=== PATIENT | male | born 1955 | race Caucasian/White ===

== ENCOUNTER 2024-03-01 14:58 | Inpatient (IN) | payer MEDICARE, OTHER ==
[~2024-03-01] VITALS: Ht 172.7 cm; Wt 93.9 kg
[2024-03-01] VITALS (11 sets, daily range): BP systolic 172–205; BP diastolic 79–100; O2SAT 94–100
[2024-03-01 16:31] LABS: BASOPHILS % (AUTO) 0.9 % (0.0-2.0); EOSINOPHILS # (AUTO) 0.4 K/uL (0.0-0.7); EOSINOPHILS % (AUTO) 7.2 % (0.0-6.0); HEMATOCRIT 24 % (39-51); LYMPHOCYTES % (AUTO) 19.5 % (20.0-44.0); MEAN CORPUSCULAR HEMOGLOBIN 32 PG (26.0-33.0); MEAN CORPUSCULAR HGB CONC 34 g/dl (31.0-36.0); MEAN CORPUSCULAR VOLUME 94 fL (80-96); MONOCYTES # (AUTO) 0.4 K/uL (0.1-1.30); MONOCYTES % (AUTO) 7.2 % (2.0-12.0); NEUTROPHILS # (AUTO) 3.4 K/uL (1.8-8.9); NEUTROPHILS % (AUTO) 65.2 % (43.0-81.0); PLATELET COUNT (AUTO) 186 K/uL (150-450); RED BLOOD CELL COUNT(AUTO) 2.54 MIL/uL (4.5-6.0); RED CELL DISTRIBUTION WIDTH 14.9 % (11.5-15.0); WHITE BLOOD COUNT (AUTO) 5.2 K/uL (4.3-11.0)
[2024-03-01 17:03] LABS: CALCIUM, SERUM 8.1 mg/dL (8.5-10.1); CARBON DIOXIDE 19 mmol/L (21-32); CHLORIDE 107 mmol/L (98-107); GLUCOSE 114 mg/dL (74-106); POTASSIUM 6.1 mmol/L (3.5-5.1); SODIUM SERUM 143 mmol/L (136-145); TOTAL PROTEIN, SERUM 7.3 g/dL (6.4-8.2)
[2024-03-01 17:04] LABS: ALANINE AMINOTRANSFERASE 7 U/L (12-78); ALKALINE PHOSPHATASE 107 U/L (46-116); ASPARTATE AMINOTRANSFERASE 5 U/L (15-37); BILIRUBIN,DIRECT 0.1 mg/dL (0.0-0.2); BILIRUBIN,TOTAL 0.4 mg/dL (0.2-1.0); CREATININE 13.4 mg/dL (0.6-1.3); UREA NITROGEN, BLOOD 122 mg/dL (7-18)
[2024-03-01 17:05] LABS: ALBUMIN 3.2 g/dL (3.4-5.0); NT-PRO BNP 7138 pg/mL (0-125)
[2024-03-01] MEDS ORDERED: AMLO5TAB4 PO (17:06)
[2024-03-01] MEDS ORDERED: IRBE300T19 PO (17:06)
[2024-03-01] MEDS ORDERED: FURO-144 PO (17:06)
[2024-03-01] MEDS ORDERED: SITA50TA PO (17:06)
[2024-03-01] MEDS ORDERED: TERA5CAP4 PO (17:06)
[2024-03-01 18:06] LABS: MAGNESIUM 3.2 mg/dL (1.8-2.4)
[2024-03-01] MEDS ORDERED: DEXTROSE 50%-WATER 50 ML DISP.SYRIN ONE (18:07)
[2024-03-01] MEDS ORDERED: INSULIN REGULAR, HUMAN 100 UNIT/ML 10 ML VIAL ONE (18:07)
[2024-03-01] MEDS ORDERED: FUROSEMIDE 20 MG/2 ML VIAL ONE (18:07)
[2024-03-01 18:08] LABS: PHOSPHORUS 9.3 mg/dL (2.5-4.9)
[2024-03-01] MEDS: FUROSEMIDE 40 MG/4 ML VIAL IV ONE (18:15)
[2024-03-01] MEDS: ALBUTEROL FS 2.5 MG/3 ML VIAL.NEB NEB ONE (18:22)
[2024-03-01] MEDS: CALCIUM CHLORIDE 1,000 MG/10 ML DISP.SYRIN IV ONE (18:22)
[2024-03-01] MEDS: INSULIN REGULAR, HUMAN 100 UNIT/ML 10 ML VIAL IV ONE (18:30)
[2024-03-01] MEDS: DEXTROSE 50%-WATER 50 ML DISP.SYRIN IV ONE (18:36)
[2024-03-01] MEDS: hydrALAZINE HCL IV 20 MG VIAL IV ONE (18:43)
[2024-03-01] MEDS ORDERED: ONDANSETRON HCL/PF 4 MG/2 ML VIAL IVP PRN (20:00)
[2024-03-01] MEDS ORDERED: Z GUARD REMEDY 4 OZ OINT TP PRN (20:00)
[2024-03-01] MEDS ORDERED: ACETAMINOPHEN 325 MG TABLET PO PRN (20:00)
[2024-03-01] MEDS ORDERED: DEXTROSE 50%-WATER 50 ML DISP.SYRIN IV PRN (20:00)
[2024-03-01] MEDS: AMLODIPINE BESYLATE 5 MG TABLET PO SCH (20:13)
[2024-03-01] MEDS: NITROGLYCERIN PACKET 1 GM PACKET TOP ONE (21:56)
[2024-03-01] MEDS: BLOOD SUGAR DIAGNOSTIC 1 EACH STRIP IN SCH (22:11)
[2024-03-01] MEDS: INSULIN REGULAR, HUMAN 100 UNIT/ML 3 ML VIAL SQ PRN (22:12)
[2024-03-01] MEDS ORDERED: INSULIN REGULAR, HUMAN 100 UNIT/ML 3 ML VIAL ONE (22:55)
[2024-03-02] VITALS (22 sets, daily range): BP systolic 105–184; BP diastolic 54–95; TEMP 97.6–97.8; O2SAT 94–99
[2024-03-02] MEDS: NITROGLYCERIN PACKET 1 GM PACKET TOP SCH (01:00)
[2024-03-02] MEDS: hydrALAZINE HCL IV 20 MG VIAL IV PRN (03:35)
[2024-03-02 04:11] LABS: BASOPHILS % (AUTO) 0.8 % (0.0-2.0); EOSINOPHILS # (AUTO) 0.2 K/uL (0.0-0.7); EOSINOPHILS % (AUTO) 4.9 % (0.0-6.0); HEMATOCRIT 22 % (39-51); HEMOGLOBIN 7.8 g/dL (13.5-17.5); LYMPHOCYTES # (AUTO) 0.7 K/uL (0.8-4.8); LYMPHOCYTES % (AUTO) 15.6 % (20.0-44.0); MEAN CORPUSCULAR HEMOGLOBIN 34 PG (26.0-33.0); MEAN CORPUSCULAR HGB CONC 36 g/dl (31.0-36.0); MEAN CORPUSCULAR VOLUME 94 fL (80-96); MONOCYTES # (AUTO) 0.3 K/uL (0.1-1.30); MONOCYTES % (AUTO) 6.1 % (2.0-12.0); NEUTROPHILS # (AUTO) 3.3 K/uL (1.8-8.9); NEUTROPHILS % (AUTO) 72.6 % (43.0-81.0); PLATELET COUNT (AUTO) 186 K/uL (150-450); RED BLOOD CELL COUNT(AUTO) 2.32 MIL/uL (4.5-6.0); RED CELL DISTRIBUTION WIDTH 14.8 % (11.5-15.0); WHITE BLOOD COUNT (AUTO) 4.6 K/uL (4.3-11.0)
[2024-03-02 04:46] LABS: THYROID STIMULATING HORMONE 1.24 uIU/mL (0.358-3.74)
[2024-03-02 04:53] LABS: CALCIUM, SERUM 8.6 mg/dL (8.5-10.1); CREATININE 7.2 mg/dL (0.6-1.3); MAGNESIUM 2.4 mg/dL (1.8-2.4); PHOSPHORUS 4.5 mg/dL (2.5-4.9); POTASSIUM 3.9 mmol/L (3.5-5.1)
[2024-03-02] MEDS ORDERED: PANTOPRAZOLE 40 MG TABLET.DR PO SCH (07:30)
[2024-03-02] MEDS ORDERED: TERAZOSIN HCL 5 MG CAPSULE PO SCH (09:00)
[2024-03-02] MEDS ORDERED: SITAGLIPTIN PHOSPHATE 50 MG TABLET PO SCH (09:00)
[2024-03-02] MEDS ORDERED: FUROSEMIDE 40 MG TABLET PO SCH (09:00)
[2024-03-03 13:07] LABS: HEPATITIS B SURFACE AB Equivocal (.)
== END 2024-03-02 08:51 | disposition left against medical advice (07) | DRG 640 ==
LOC: EDUNIT# 14:58 → ER 15:10 → ICU 21:07
PROVIDERS: ADMIT Nurse Practitioner Family; ATTEND Nurse Practitioner Family
PROC: 5A1D70Z Performance of Urinary Filtration, Intermittent, Less than 6 Hours Per Day (ICD-10-PCS; principal; 2024-03-01)
DX: E87.70 Fluid overload, unspecified (principal); N18.6 End stage renal disease; I12.0 Hypertensive chronic kidney disease with stage 5 chronic kidney disease or end stage renal disease; E44.1 Mild protein-calorie malnutrition; E87.5 Hyperkalemia; E11.22 Type 2 diabetes mellitus with diabetic chronic kidney disease; D63.1 Anemia in chronic kidney disease; E88.09 Other disorders of plasma-protein metabolism, not elsewhere classified; Z79.84 Long term (current) use of oral hypoglycemic drugs; Z79.899 Other long term (current) drug therapy; Z99.2 Dependence on renal dialysis; E83.41 Hypermagnesemia; E83.39 Other disorders of phosphorus metabolism; Z68.31 Body mass index [BMI] 31.0-31.9, adult; Z53.29 Procedure and treatment not carried out because of patient's decision for other reasons
CPT/HCPCS: 36415; 71045-TC; 80048-TC; 80076-TC; 82607-TC; 82728-TC; 83540-TC; 83735-TC; 83880; 84100-TC; 84443-TC; 84484-TC; 85025-TC; 86706; 87081-TC; 87340; 90935-TC; A6403; G0378; J0360; J1815; J1940; J3490; J7030

== ENCOUNTER 2024-07-08 06:56 | Emergency (ER) | payer MEDICARE, OTHER ==
[~2024-07-08] VITALS: Ht 175.3 cm; Wt 77.1 kg
[~2024-07-08 06:56] MED LIST: AMLO5TAB4 PO; FURO-144 PO; IRBE300T19 PO; SITA50TA PO; TERA5CAP4 PO
[2024-07-08] MEDS ORDERED: LIDOCAINE 5% (PATCH) 1 EA PATCH TP ONE (07:45)
[2024-07-08] MEDS: LIDOCAINE 5% (PATCH) 1 EA PATCH TP SCH (07:52)
[2024-07-08] MEDS ORDERED: LIDO30AD10 TP (07:54)
[2024-07-08] MEDS ORDERED: OXYC-133 PO (07:54)
[2024-07-08] MEDS ORDERED: MOME17SP BNOSTRILS (07:54)
[2024-07-08 08:21] VITALS: BP 176/94; TEMP 98; O2SAT 99
[2024-07-08 09:52] LABS: APPEARANCE,URINE CLEAR (CLEAR); BILIRUBIN,URINE NEGATIVE (NEGATIVE); BLOOD, URINE 1+ Ery/uL (NEGATIVE); COLOR,URINE YELLOW (YELLOW); KETONES,URINE TRACE mg/dL (NEGATIVE); LEUKOCYTE ESTERASE ,URINE NEGATIVE (NEGATIVE); NITRITE, URINE NEGATIVE (NEGATIVE); PROTEIN,URINE 3+ mg/dl (NEGATIVE); UGLUCOSE 1+ mg/dL (NEGATIVE); UROBILINOGEN,URINE 0.2 EU/dL (0.2)
[2024-07-08 10:12] LABS: ADD URINE CULTURE NO; BACTERIA,URINE None seen /HPF (None Seen); FINE GRANULAR CASTS,URINE Few /LPF (None Seen); HYALINE CASTS, URINE Few /LPF (None Seen); MUCUS,URINE Few /LPF (None Seen); SQUAMOUS EPITHELIAL CELL,UR 0-2 /HPF (None Seen); TRICHOMONAS,URINE None Seen /HPF (None Seen); YEAST,URINE None Seen /HPF (None Seen)
== END 2024-07-08 08:31 | disposition home or self-care (01) ==
LOC: ER 07:00
DX: G89.29 Other chronic pain (principal); M54.50 Low back pain, unspecified; I12.0 Hypertensive chronic kidney disease with stage 5 chronic kidney disease or end stage renal disease; N18.6 End stage renal disease; Z79.84 Long term (current) use of oral hypoglycemic drugs; Z79.899 Other long term (current) drug therapy; Z99.2 Dependence on renal dialysis; Z20.822 Contact with and (suspected) exposure to COVID-19
CPT/HCPCS: 81001

== ENCOUNTER 2024-07-11 16:20 | Emergency (ER) | payer MEDICARE ==
[~2024-07-11] VITALS: Ht 177.8 cm; Wt 99.8 kg
[~2024-07-11 16:20] MED LIST changes: +LIDO30AD10 TP; +MOME17SP BNOSTRILS; +OXYC-133 PO
[2024-07-11] MEDS ORDERED: OXYC-133 PO (18:21)
[2024-07-11 18:36] VITALS: BP 205/102; TEMP 98.3; O2SAT 98
== END 2024-07-11 18:37 | disposition home or self-care (01) ==
LOC: ER 16:24
DX: G89.29 Other chronic pain (principal); M54.50 Low back pain, unspecified; I12.0 Hypertensive chronic kidney disease with stage 5 chronic kidney disease or end stage renal disease; N18.6 End stage renal disease; Z79.51 Long term (current) use of inhaled steroids; Z79.84 Long term (current) use of oral hypoglycemic drugs; Z79.899 Other long term (current) drug therapy; Z99.2 Dependence on renal dialysis

== ENCOUNTER 2024-08-14 22:07 | Emergency (ER) | payer MEDICARE, OTHER ==
[~2024-08-14] VITALS: Ht 172.7 cm; Wt 95.3 kg
[2024-08-14 22:26] VITALS: BP 165/83; TEMP 98.1; O2SAT 98
[2024-08-14] MEDS ORDERED: oxyCODONE/APAP (5/325 MG) 1 UDTAB TABLET ONE (23:03)
[2024-08-14] MEDS: oxyCODONE/APAP (5/325 MG) 1 UDTAB TABLET PO ONE (23:04)
[2024-08-14] MEDS ORDERED: OXYC-133 PO (23:06)
== END 2024-08-15 00:23 | disposition home or self-care (01) ==
LOC: ER 22:08
DX: M25.561 Pain in right knee (principal); M54.59 Other low back pain; G89.29 Other chronic pain; I12.0 Hypertensive chronic kidney disease with stage 5 chronic kidney disease or end stage renal disease; N18.6 End stage renal disease; Z79.51 Long term (current) use of inhaled steroids; Z79.84 Long term (current) use of oral hypoglycemic drugs; Z79.899 Other long term (current) drug therapy; Z99.2 Dependence on renal dialysis; Z60.2 Problems related to living alone
CPT/HCPCS: 73560-TC

== ENCOUNTER 2024-10-18 15:35 | Emergency (ER) | payer OTHER ==
[~2024-10-18] VITALS: Ht 172.7 cm; Wt 95.3 kg
[2024-10-18 15:48] VITALS: BP 168/86; TEMP 98.4; O2SAT 99
[2024-10-18] MEDS ORDERED: KETO10TA2 PO (16:06)
[2024-10-18] MEDS ORDERED: BACL10TA PO (16:06)
[2024-10-18] MEDS ORDERED: TRIA80OI TP (16:06)
[2024-10-18] MEDS ORDERED: LIDO30AD10 TP (16:06)
== END 2024-10-18 16:44 | disposition home or self-care (01) ==
LOC: ER 15:54
DX: G89.29 Other chronic pain (principal); R21 Rash and other nonspecific skin eruption; I12.0 Hypertensive chronic kidney disease with stage 5 chronic kidney disease or end stage renal disease; N18.6 End stage renal disease; Z79.51 Long term (current) use of inhaled steroids; Z79.84 Long term (current) use of oral hypoglycemic drugs; Z79.899 Other long term (current) drug therapy; Z99.2 Dependence on renal dialysis